=== PATIENT | female | born 2000 | race Hispanic/Latino ===

== ENCOUNTER 2019-05-25 06:04 | Emergency (ER) | payer OTHER ==
[2019-05-25 06:47] LABS: Bilirubin Negative (Negative); Blood, Urine 3+ (Negative); Clarity Clear (Clear); Glucose, Urine (Dipstick) Normal (Negative); Leukocyte 75 Leu/uL (Negative); Nitrite Negative (Negative); Protein, Urine (Dipstick) 10 mg/dL (Neg-Trace); RBC/HPF 0-3 HPF (0-3); Urobilinogen Normal mg/dL (Less than 2); WBC/HPF 0-3 HPF (0-3)
[2019-05-25 06:56] LABS: Bacteria/HPF 1+ HPF (None Seen)
== END 2019-05-25 07:44 | disposition home or self-care (01) ==
LOC: ERS 06:04
DX: O20.9 Hemorrhage in early pregnancy, unspecified (principal); Z79.899 Other long term (current) drug therapy; Z3A.14 14 weeks gestation of pregnancy
CPT/HCPCS: 36415; 81003; 81015; 86900; 86901; 87086

== ENCOUNTER 2019-06-04 11:06 | Emergency (ER) | payer OTHER ==
[2019-06-04 12:18] LABS: #Monocytes 0.6 thou/uL (0.11-0.59); #Neutrophils 7.5 thou/uL (1.40-6.50); %Basophils 0.1 % (0.0-1.0); %Eosinophils 0.4 % (0.0-10.0); %Lymphocytes 19.3 % (28.0-48.0); %Monocytes 5.6 % (0.0-4.0); %Neutrophils 74.5 % (31.0-61.0); Hemoglobin 12.6 g/dL (12.0-16.0); Mean Corpuscular HGB CONC 35.2 g/dL (32.0-36.0); Mean Corpuscular Hemoglobin 31.5 pg (25.0-35.0); Mean Corpuscular Volume 89.5 fL (78.0-98.0); Mean Platelet Volume 7.9 fL (7.4-10.4); Platelet Count 252 thou/uL (130-400); RBC Distribution Width 11.3 % (11.5-14.5); Red Blood Cell (RBC) Count 3.99 mill/uL (4.00-5.20); White Blood Cell (WBC) Count 10.1 thou/uL (4.8-10.8)
[2019-06-04 12:45] LABS: Bacteria/HPF 2+ HPF (None Seen); Bilirubin Negative (Negative); Blood, Urine 2+ (Negative); Clarity Clear (Clear); Glucose, Urine (Dipstick) Normal (Negative); Leukocyte 25 Leu/uL (Negative); Nitrite Negative (Negative); Protein, Urine (Dipstick) 20 mg/dL (Neg-Trace)
[2019-06-04 12:53] LABS: Calcium Oxalate Crystals None Seen HPF (None Seen)
--- NOTE | 2019-06-04 13:15 | ULT ---
EXAM: US Pelvic Transvag W Doppler PROVIDED CLINICAL HISTORY: Vaginal bleeding COMPARISON: None FINDINGS: Uterus measures about 14.2 x 9.3 x 9.8 cm and demonstrates a single live intrauterine gestation, 13 w eeks 4 days by crown-rump length. Heart rate of 144 bpm is documented. There is no evidence for subchorionic hemorrhage. There is heterogeneous echogenicity within the cervical canal. The cervix ap pears closed. The right and left ovaries appear sonographically normal. Color Doppler and spectral analysis of the ovarian waveforms demonstrates normal flow bilaterally. There is no evidence for free pelvic fluid. IMPRESSION: 1. Single live intrauterine gestation as above. 2. Heterogeneous material within the cervical canal, which could reflect blood products.
[2019-06-06 01:05] LABS: Chlamydia by PCR Not Detected (NotDetected); GC by PCR Not Detected (NotDetected)
== END 2019-06-04 14:20 | disposition home or self-care (01) ==
LOC: ERS 11:06
DX: O20.0 Threatened abortion (principal); Z3A.16 16 weeks gestation of pregnancy
CPT/HCPCS: 36415; 76856; 81003; 81015; 84702; 85025; 87480; 87491; 87510; 87591; 87660

== ENCOUNTER 2019-07-09 08:14 | Outpatient (CLI) | payer OTHER ==
--- NOTE | 2019-07-09 10:56 | ULT ---
OB ULTRASOUND: HISTORY: anatomy. FINDINGS: Findings of a single liver intrauterine gestation is seen with measurements corresponding to an estim ated gestational age of 20 weeks 2 days and an UMAIR of 11/24/2019. The estimated weight measures 325 g or 11 oz (36% by Hadlock criteria). measurements are as follows: BPD: 4.69 cm (20 weeks 2 days) HC: 17.98 cm (20 weeks 3 days) AC: 14.33 cm (19 weeks 5 days) FL: 3.27 cm (20 weeks 2 days) heart rate measures 139 beats per minute. Cervical length measures 3.6 cm. WENDI measures 15.5 cm . The placenta is posteriorly located without evidence of placenta previa. Three vessel cord, cord insertion, kidneys, bladder, stomach, four chambered heart, lateral alex tricles, cerebellum, spine, lips/nose and upper and lower extremities are visualized. No definite fet al anomalies are seen. IMPRESSION: Single live intrauterine of 20 weeks' 2 days estimated gestational age and estimated date o f delivery of 11/24/2019. POS: OFF
== END 2019-07-09 08:15 | disposition home or self-care (01) ==
LOC: BICULT 08:14
PROVIDERS: ATTEND Family Medicine
DX: Z34.02 Encounter for supervision of normal first pregnancy, second trimester (principal); Z3A.20 20 weeks gestation of pregnancy
CPT/HCPCS: 76805

== ENCOUNTER 2019-09-15 13:31 | Day surgery (SDC) | payer OTHER ==
[2019-09-15 14:08] VITALS: BP 110/59; TEMP 99.3; BMI 26.5
--- NOTE | 2019-09-15 14:43 | PDOC.FPROB ---
FMR OB H&P: Medications - Current Home Medications: Medication Instructions Recorded Confirmed Type Ferrous Sulfate [Iron] 325 mg PO DAILY 09/15/19 09/15/19 History Vit 93/Iron Fum/Folic 1 tablet PO DAILY 09/15/19 09/15/19 History [ Formula Tablet] Allergies/Adverse Reactions: Allergies Allergy/AdvReac Type Severity Reaction Status Date / Time No Known Allergies Allergy Unverified 09/15/19 14:09 FMR OB H&P: Vital Signs - Maternal Vital signs: Vital Signs - First Documented Temp Pulse Resp BP Pulse Ox 99.3 F 84 18 110/59 L 97 09/15/19 13:46 09/15/19 13:46 09/15/19 13:46 09/15/19 13:46 09/15/19 13:46 FMR OB H&P: A/P - Problem List (1) Current Visit: Yes Status: Acute (2) Anemia affecting Current Visit: Yes Status: Acute Code(s): O99.019 - ANEMIA COMPLICATING , UNSPECIFIED TRIMESTER (3) Fall Current Visit: Yes Status: Acute Code(s): W19.XXXA - UNSPECIFIED FALL, INITIAL ENCOUNTER Discussion: Date/Time: 09/15/19 1442 PCP: Fernando HPI: This is a 18 yo @ 29.6 wks who comes in for evaluation after a ground level fall at work. The fall occurred at 1030 AM when she was finishing up her lunch break, was reaching up to put a lunch box in a cabinet and trip and fell on her side. Did not hit her head or abdomen, denies LOC. She denies CLOLADO, visual changes, gush of fluid, or vaginal bleeding. She has had some cramping in her back but it has been irregular. She affirms movement, denies cxns, ROM, bleeding. History: OB hx: G1, anemia of PMH: negative PSH: negative Meds: PNV, iron, famotidine All: NKDA Soc Hx: denies smoking, alcohol, drugs REVIEW OF SYSTEMS: Gen: no fever, chills, or sweats Neuro: no numbness/tingling, no weakness, denies headache ENT: denies congestion Eyes: no visual changes Resp: denies cough, no production, no SOB, no wheeze Card: denies chest pain, no palpitations GI: denies nausea, vomiting, diarrhea : no dysuria, no hematuria Skin: no rash, no erythema Psych: denies hx anxiety/depression Vitals: T: 98.5 R: 18 BP: 110/69 P:80 at: 98% on RA PHYSICAL EXAMINATION: General: NAD, alert and oriented x3 HEENT: EOMI, normal sclera Neck: Supple. Full ROM. Heart/Cardiovascular System: RRR, Cap refill < 3 seconds, no rub, no murmur Lungs/Respiratory System: clear to auscultation bilaterally. No increased work of breathing. Room air. Abdomen/Gastro-Intestinal System: normal bowel sounds, Gravid, no tenderness to palpation of abdomen Extremities: Warm extremities. No cyanosis or edema. Mild pain to palpation over L greater trocanter Neuro: No gross deficits appreciated Psychiatry: Awake, Alert and cooperative with exam Skin: no lesions, no rashes Musculoskeletal: Full ROM A/P: This is a 18 yo @ 29.6 wks after ground level fall at work FHT: 130 baseline, mod variability, no decels, accels present [place]: none # , fall -No reported abdominal trauma, no bleeding or ROM -Fall occurred at 1030 -Will hold off on KB test, low index of suspicion for fetomaternal hemorrhage -Monitored patient for >1 hours, accels present, no decels, no contractions -Discharged home with precautions, use tylenol prn for pain,no pain at time of d /c
--- NOTE | 2019-09-15 15:47 | PDOC.BPN ---
- Brief Progress Note This patient was seen in L&D on 09/15/19 and is ok to return to work 09/16/19. She should be seen in clinic within 7 days. Fab Womack MD
== END 2019-09-15 13:50 | disposition home or self-care (01) ==
LOC: L&D/OP 13:31
PROVIDERS: ATTEND Family Medicine
DX: O99.89 Other specified diseases and conditions complicating pregnancy, childbirth and the puerperium (principal); M25.552 Pain in left hip; O99.013 Anemia complicating pregnancy, third trimester; D64.9 Anemia, unspecified; Z3A.29 29 weeks gestation of pregnancy; W01.0XXA Fall on same level from slipping, tripping and stumbling without subsequent striking against object, initial encounter; Y99.0 Civilian activity done for income or pay
CPT/HCPCS: 99282

== ENCOUNTER 2019-11-09 15:06 | Inpatient (IN) | payer OTHER, SELFPAY ==
[2019-11-09 15:34] VITALS: BMI 29.4
[2019-11-09] MEDS: Lactated Ringer's 1,000 ML IV SCH (15:39)
[2019-11-09] MEDS ORDERED: Ondansetron PF 4 MG/2 ML Vial IVP PRN (15:49)
[2019-11-09] MEDS ORDERED: Lidocaine 1% (PF) 30 ML VIAL SC PRN (15:49)
[2019-11-09] MEDS ORDERED: Ibuprofen 800 MG TAB PO PRN (15:49)
[2019-11-09] MEDS ORDERED: Promethazine HCl 25 MG/ML VIAL IM PRN (15:49)
[2019-11-09] MEDS ORDERED: hydrALAZINE 20 MG/ML VIAL SLOW IVP PRN (15:49)
[2019-11-09] MEDS ORDERED: Lidocaine 1% (PF) 30 ML VIAL ONE (15:58)
[2019-11-09] MEDS ORDERED: NS / Oxytocin 40 units/1000ml 1,000 ML ONE (15:58)
[2019-11-09] MEDS ORDERED: NS w/ Oxytocin 10 units 500 ML IV SCH ×2 (16:00)
[2019-11-09 16:02] LABS: Hemoglobin 11.5 g/dL (12.0-16.0); Mean Corpuscular HGB CONC 34.2 g/dL (32.0-36.0); Mean Corpuscular Hemoglobin 29.5 pg (25.0-35.0); Mean Corpuscular Volume 86.2 fL (78.0-98.0); Mean Platelet Volume 11.1 fL (7.4-10.4); Platelet Count 197 thou/uL (130-400); RBC Distribution Width 12.9 % (11.5-14.5); Red Blood Cell (RBC) Count 3.89 mill/uL (4.00-5.20); White Blood Cell (WBC) Count 11.6 thou/uL (4.8-10.8)
[2019-11-09] MEDS: NS / Oxytocin 40 units/1000ml 1,000 ML IV PRN ×2 (16:20→18:50)
[2019-11-09 16:48] LABS: HBSAg Index 0.25 S/CO (0-0.99); Hep B Surf Ag Non-Reactive S/CO (NonReactive)
[2019-11-09 16:49] LABS: Syphilis Antibody Nonreactive (Nonreactive); Syphilis Antibody Index 0.09 S/CO (<1.00 Non-Reactive)
[2019-11-09] MEDS ORDERED: Lisinopril/Hydrochlorothiazide 10 mg/12.5 mg Tablet PO SCH (22:45)
[2019-11-09] MEDS: cloNIDine 0.1 MG TAB PO PRN (23:10)
[2019-11-10] MEDS ORDERED: diphenhydrAMINE 25 MG CAP PO PRN (00:33)
[2019-11-10] MEDS ORDERED: Milk Of Magnesia 30 ML UDCUP PO PRN (00:33)
[2019-11-10] MEDS ORDERED: Ondansetron PF 4 MG/2 ML Vial IVP PRN (00:33)
[2019-11-10] MEDS ORDERED: hydrALAZINE 20 MG/ML VIAL SLOW IVP PRN (00:33)
[2019-11-10] MEDS ORDERED: HYDROcodone/Acetaminophen 5/325 mg Tablet PO PRN ×2 (00:33)
[2019-11-10] MEDS ORDERED: Promethazine HCl 25 MG/ML VIAL IM PRN (00:33)
[2019-11-10] MEDS ORDERED: Benzocaine-Menthol 82.5 ML CAN TOP PRN (00:33)
[2019-11-10] MEDS ORDERED: Bisacodyl 10 MG SUPP PR PRN (00:33)
[2019-11-10] MEDS ORDERED: NS / Oxytocin 40 units/1000ml 1,000 ML IV SCH (00:33)
[2019-11-10] MEDS ORDERED: Lanolin Ointment 7 GM TUBE TOP PRN (00:33)
[2019-11-10] MEDS: cloNIDine 0.1 MG TAB PO PRN (04:40)
[2019-11-10 07:17] LABS: Hemoglobin 9.5 g/dL (12.0-16.0); Mean Corpuscular HGB CONC 34.5 g/dL (32.0-36.0); Mean Corpuscular Volume 87.1 fL (78.0-98.0); Mean Platelet Volume 10.5 fL (7.4-10.4); Platelet Count 167 thou/uL (130-400); RBC Distribution Width 12.9 % (11.5-14.5); Red Blood Cell (RBC) Count 3.17 mill/uL (4.00-5.20); White Blood Cell (WBC) Count 12.8 thou/uL (4.8-10.8)
[2019-11-10] MEDS ORDERED: Adacel (T-DAP) 0.5 ML SYRINGE IM ONE (09:00)
[2019-11-10] MEDS: Ibuprofen 800 MG TAB PO SCH ×3 (10:16→23:14)
[2019-11-10] MEDS: Prenatal Vitamin 1 TAB PO SCH (10:16)
[2019-11-10] MEDS: Docusate Calcium (SURFAK) 240 MG CAP PO SCH ×2 (10:16→21:16)
[2019-11-10] MEDS: Ferrous Sulfate 325 MG TAB PO SCH ×2 (10:17→18:09)
[2019-11-10] MEDS: Lisinopril/Hydrochlorothiazide 10 mg/12.5 mg Tablet PO SCH (11:01)
[2019-11-10] MEDS: Lactated Ringer's 1,000 ML IV SCH (23:16)
[2019-11-11] MEDS: Ibuprofen 800 MG TAB PO SCH ×2 (00:12→08:21)
[2019-11-11 08:20] VITALS: BP 135/80; TEMP 98
[2019-11-11] MEDS: Ferrous Sulfate 325 MG TAB PO SCH (08:20)
[2019-11-11] MEDS: Docusate Calcium (SURFAK) 240 MG CAP PO SCH (08:21)
[2019-11-11] MEDS: Prenatal Vitamin 1 TAB PO SCH (08:21)
[2019-11-11] MEDS: Lisinopril/Hydrochlorothiazide 10 mg/12.5 mg Tablet PO SCH (09:23)
== END 2019-11-11 12:45 | disposition home or self-care (01) | DRG 807 ==
LOC: L&D/OP 15:06 → L&D 16:14 → 3SW 11-10 12:56
PROVIDERS: ADMIT Family Medicine; ATTEND Family Medicine
PROC: 10E0XZZ Delivery of Products of Conception, External Approach (ICD-10-PCS; principal; 2019-11-09)
PROC: 0HQ9XZZ Repair Perineum Skin, External Approach (ICD-10-PCS; 2019-11-09)
DX: O70.0 First degree perineal laceration during delivery (principal); Z37.0 Single live birth; Z3A.37 37 weeks gestation of pregnancy
CPT/HCPCS: 36415; 85027; 86780; 86850; 86900; 86901; 87086; 87340; 88307; 99285; J0360; J2001

== ENCOUNTER 2020-05-23 03:13 | Emergency (ER) | payer OTHER, SELFPAY ==
[2020-05-23 03:47] LABS: #Basophils 0.1 thou/uL (0.0-0.2); #Eosinphils 0.1 thou/uL (0.0-0.7); #Lymphocytes 3.5 thou/uL (1.20-3.40); #Monocytes 0.6 thou/uL (0.11-0.59); %Basophils 0.6 % (0.0-1.0); %Eosinophils 1.5 % (0.0-10.0); %Neutrophils 53.9 % (31.0-61.0); Hemoglobin 12.1 g/dL (12.0-16.0); Mean Corpuscular HGB CONC 33.5 g/dL (32.0-36.0); Mean Corpuscular Hemoglobin 28.7 pg (25.0-35.0); Mean Corpuscular Volume 85.6 fL (78.0-98.0); Mean Platelet Volume 8.4 fL (7.4-10.4); Platelet Count 278 thou/uL (130-400); Red Blood Cell (RBC) Count 4.24 mill/uL (4.00-5.20); White Blood Cell (WBC) Count 9.3 thou/uL (4.8-10.8)
[2020-05-23 03:52] LABS: Bilirubin Negative (Negative); Blood, Urine 3+ (Negative); Clarity Clear (Clear); Glucose, Urine (Dipstick) Normal (Negative); Ketone, Urine Negative (Negative); Leukocyte 75 Leu/uL (Negative); Nitrite Negative (Negative); Protein, Urine (Dipstick) 20 mg/dL (Neg-Trace); RBC/HPF Greater than 50 HPF (0-3); Urobilinogen Normal mg/dL (Less than 2); pH, Urine 5.5 (5.0-9.0)
[2020-05-23 03:54] LABS: Bacteria/HPF 1+ HPF (None Seen)
== END 2020-05-23 04:38 | disposition home or self-care (01) ==
LOC: ERS 03:13
DX: O20.9 Hemorrhage in early pregnancy, unspecified (principal); Z3A.01 Less than 8 weeks gestation of pregnancy
CPT/HCPCS: 36415; 81003; 81015; 84702; 85025; 86900; 86901; 99284